=== PATIENT | male | born 1990 | race Two or more races ===

== ENCOUNTER 2018-04-12 09:40 | Inpatient (IN) | payer OTHER ==
[~2018-04-12] VITALS: Ht 162.6 cm; Wt 72.2 kg
[2018-04-12 10:37] LABS: Basophils # (auto) 0 uL; Basophils % (auto) 0.7 % (0.0-2.0); Eosinophils # (auto) 0 uL; Eosinophils % (auto) 0.6 % (0.0-7.0); Hematocrit 43.3 % (41.0-53.0); Lymphocytes # (auto) 1.9 uL; Lymphocytes % (auto) 29.5 % (10.0-50.0); Mean Corpuscular Hemoglobin 29.2 pg (28.0-32.0); Mean Corpuscular Hgb Conc. 34.6 g/dL (32.0-36.0); Mean Corpuscular Volume 84.6 fL (80.0-100.0); Monocytes # (auto) 0.4 uL; Monocytes % (auto) 6.9 % (0.0-12.0); Neutrophils % (auto) 62.3 % (37.0-80.0); Platelet Count (auto) 252 10^3/uL (140-450); Red Blood Cells 5.12 10^6/uL (4.5-5.90); Red Cell Distribution Width 13.6 % (11.8-14.3); White Blood Cell 6.5 10^3/uL (4.4-10.8)
[2018-04-12 10:58] LABS: BUN/Creatinine Ratio 15.9; Calcium 8.9 mg/dL (8.5-10.1); Potassium 4.2 mmol/L (3.5-5.1)
[2018-04-12 11:01] LABS: INR 1.03 (0.9-1.15); Partial Thromboplastin Time 31.6 sec (23.78-33.04)
[2018-04-12] MEDS ORDERED: ceFAZolin 1GM/50ML 50 ML IV ONE (13:34)
[2018-04-12] MEDS ORDERED: ceFAZolin 1GM VL ONE (13:40)
[2018-04-12] MEDS ORDERED: BUPIVACAINE 0.25% INJ 50ML VIAL ONE (13:40)
[2018-04-12] MEDS ORDERED: fentaNYL CITRATE 100 MCG/2 ML VL ONE (13:55)
[2018-04-12] MEDS ORDERED: MIDAZOLAM HCL 1MG/1ML-2 ML VIAL ONE (13:55)
[2018-04-12] MEDS ORDERED: MEPERIDINE HCL (50 MG/ML) 1 ML VIAL ONE (13:56)
[2018-04-12] MEDS ORDERED: PROPOFOL 10 MG/ML 20 ML IV ONE (14:00)
[2018-04-12] MEDS ORDERED: DEXAMETHASONE SOD PHOS 10MG/1ML VIAL INJ ONE (14:00)
[2018-04-12] MEDS ORDERED: ONDANSETRON HCL 4 MG/2 ML VIAL IV ONE (14:15)
[2018-04-12] MEDS ORDERED: KETOROLAC TROMETH 30 MG/ML 1ML VIAL IV ONE (14:15)
[2018-04-12] MEDS ORDERED: MORPHINE SULFATE 4 MG/ML SYR/VIAL IV PRN ×2 (14:15→15:15)
[2018-04-12] MEDS ORDERED: ePHEDrine SULFATE 50 MG/ML AMP IV PRN (14:15)
[2018-04-12] MEDS ORDERED: LABETALOL HCL 5 MG/ML 4ML SYRINGE IV PRN (14:15)
[2018-04-12] MEDS ORDERED: MIDAZOLAM HCL 1MG/1ML-2 ML VIAL IV PRN (14:15)
[2018-04-12] MEDS ORDERED: NITROGLYCERIN 0.4 MG SL TAB SL PRN (15:15)
[2018-04-12] MEDS: HYDROmorphone HCL 2 MG/ML VL IV PRN ×4 (15:27→16:25)
[2018-04-12] MEDS ORDERED: MORPHINE SULFATE 4 MG/ML SYR/VIAL IV ONE (16:00)
[2018-04-12 17:15] VITALS: BP 113/62
[2018-04-12 17:26] VITALS: BP 113/62
[2018-04-12] MEDS: HYDROcodone-ACET 10/325MG TAB PO PRN (20:47)
[2018-04-12 21:29] VITALS: BP 109/59
[2018-04-12 21:30] VITALS: BP 109/59
[2018-04-13] MEDS: HYDROcodone-ACET 10/325MG TAB PO PRN ×3 (00:50→13:07)
[2018-04-13 04:30] VITALS: BP 108/67
[2018-04-13 08:22] VITALS: BP 104/56
[2018-04-13 09:00] VITALS: BP 104/56
[2018-04-13] MEDS ORDERED: ENOXAPARIN SOD 40 MG/0.4 ML SYRINGE SC SCH (10:00)
[2018-04-13 13:00] VITALS: BP 120/69
== END 2018-04-13 14:35 | DRG 352 ==
LOC: SUR 09:40 → EAST 09:41 → EEVIPCON 09:41
PROVIDERS: ADMIT Surgery; ATTEND Internal Medicine
PROC: 0YQ50ZZ Repair Right Inguinal Region, Open Approach (ICD-10-PCS; principal; 2018-04-12 13:48)
DX: K40.90 Unilateral inguinal hernia, without obstruction or gangrene, not specified as recurrent (principal); Z90.49 Acquired absence of other specified parts of digestive tract
CPT/HCPCS: 36415; 80048; 85025; 85610; 85730; 88302; J0690; J1100; J1885; J2250; J2405; J2704; J3490